=== PATIENT | female | born 1985 | race Caucasian/White ===

== ENCOUNTER 2017-02-22 12:25 | Emergency (ER) | payer OTHER ==
[~2017-02-22] VITALS: Ht 162.6 cm; Wt 90.0 kg
[2017-02-22 12:38] VITALS: Ht 162.6 cm; Wt 90.0 kg
[2017-02-22] MEDS ORDERED: KETOROLAC 60 MG INJ IM STA (13:29)
[2017-02-22] MEDS ORDERED: LIDOCAINE/MYLANTA 40 ML BTL PO ONE (13:30)
--- NOTE | 2017-02-22 13:50 | ERD ---
ER Documentation Chief Complaint Date/Time DATE: 02/22/17 TIME: 13:[address] HPI This 31-year-old female presents to the ER for sore throat that has been going on for 3 days now. Getting progressively worse. She has trouble swallowing solids. She is swallowing own secretions but feels like she does not want to because of the pain. Yesterday she felt like she had a fever but did not check the temperature. She has no ear pain. ROS All systems reviewed and are negative except as per history of present illness. Physical Exam Vitals Vital Signs Date Time Temp Pulse Resp B/P Pulse Ox O2 Delivery O2 Flow Rate FiO2 02/22/17 12:38 98.1 84 18 142/77 99 Physical Exam Const: [] Mild distress Eyes: Normal Conjunctiva, notable strabismus with BRIANDA ENT: Normal External Ears, Nose and Mouth. Oropharynx with bilateral tonsillar erythema and left tonsillar exudate, no unilateral tonsillar swelling or uvular deviation. Neck: Full range of motion..~ No meningismus. Left 2 cm anterior cervical tender lymph node. Skin: No petechiae or rashes Neur: Awake and alert and oriented 3, no focal deficit Psych: Normal Mood and Affect Results 24 hrs Current Medications Medications (Trade) Dose Ordered Sig/Lindsay Route PRN Reason Start Time Stop Time Status Last Admin Dose Admin Ketorolac Tromethamine (Toradol) 60 mg ONCE STAT IM 02/22/17 13:29 02/22/17 13:32 DC Miscellaneous Medication (Gi Cocktail (2)) 40 ml ONCE ONCE PO 02/22/17 13:30 02/22/17 13:32 DC Procedures/MDM Presumed acute streptococcal pharyngitis. Patient was given a Toradol injection as well as viscous lidocaine. This helped with her throat pain and she was able to tolerate p.o. Going to discharge her with [place], naproxen as well as amoxicillin for 10 days. I am also recommending that she gets primary care follow-up and referral for an ENT if she continues to have pain. Stable vital signs and patient is otherwise well-appearing. She is hard of seeing but independent in regard to this emergency room. I have asked the nurse to help her over to an appropriate pharmacy to fill the prescriptions on her way home. Departure Diagnosis: Primary Impression: Strep throat Condition: Stable JESUSITA JOHNSON DO Feb 22, 2017 13:50
[2017-02-22] MEDS ORDERED: AMO500 PO (14:18)
[2017-02-22] MEDS ORDERED: DEXS PO (14:18)
[2017-02-22] MEDS ORDERED: HYDR-906 PO (14:18)
[2017-02-22] MEDS ORDERED: NAPR-688 PO (14:18)
== END 2017-02-22 14:47 | disposition home or self-care (01) ==
LOC: FTE 12:25
DX: J02.9 Acute pharyngitis, unspecified (principal)
CPT/HCPCS: 96372; J1885; Z7502; Z7610

== ENCOUNTER 2018-08-04 22:09 | Emergency (ER) | END 2018-08-05 02:36 | disposition home or self-care (01) ==

== ENCOUNTER 2018-12-20 15:52 | Emergency (ER) | payer OTHER ==
[~2018-12-20] VITALS: Ht 167.6 cm; Wt 83.6 kg
[~2018-12-20 15:52] MED LIST: AMOX500C2 PO; DEXS PO; HYDR-4011 PO; IBUP800T48 PO; NAPR-688 PO
[2018-12-20 15:55] VITALS: BP 155/67; PULSE 112; RESP 20; Ht 167.6 cm; Wt 83.6 kg
[2018-12-20] MEDS ORDERED: ACETAMINOPHEN 500 MG TAB PO STA (18:40)
[2018-12-20] MEDS ORDERED: CEFTRIAXONE 1 GM INJ IM ONE (20:30)
[2018-12-20] MEDS ORDERED: LIDOCAINE 1% (MPF) 5 ML VIAL INFIL ONE (20:30)
[2018-12-20] MEDS ORDERED: IBUP-1542 PO (20:43)
[2018-12-20] MEDS ORDERED: CIPR500T4 PO (20:43)
[2018-12-20] MEDS ORDERED: ACET-141 PO (20:43)
[2018-12-20] MEDS ORDERED: TAMS-14 PO (20:45)
--- NOTE | 2018-12-20 20:59 | ERD ---
ER Documentation Chief Complaint Chief Complaint Complains of a fever since today HPI 33-year-old female no significant past medical history presents for fever x1 day. Patient states that the fever was measured at 102 home. Patient also has associated right flank pain noted to be 6 out of 10. The pain is intermittent. She was seen by her primary care physician yesterday and was told that she had a urinary tract infection and was given nitrofurantoin. She does admit to some dysuria. No other modifying factors noted, no other treatments tried home. ROS All systems reviewed and are negative except as per history of present illness. Medications Home Meds Active Scripts Tamsulosin Hcl* (Flomax*) 0.4 Mg Cap.er.24h, 0.4 MG PO DAILY for kidney stones for 14 Days, #14 CAP Prov:PEDRO LUIS CYR DO 12/20/18 Ibuprofen* (Motrin*) 600 Mg Tab, 600 MG PO Q6H PRN for PAIN AND OR ELEVATED TEMP, #30 TAB Prov:PEDRO LUIS CYR DO 12/20/18 Acetaminophen* (Acetaminophen*) 500 MG Extra Strength Tablet, 500 MG PO Q4H PRN for PAIN AND OR ELEVATED TEMP, #30 TAB Prov:PEDRO LUIS CYR DO 12/20/18 Ciprofloxacin Hcl* (Ciprofloxacin Hcl*) 500 Mg Tablet, 500 MG PO BID for pyelonephritis for 7 Days, #14 TAB Prov:PEDRO LUIS CYR DO 12/20/18 Ibuprofen* (Motrin*) 800 Mg Tab, 800 MG PO Q6, #30 TAB Prov:MAYDA TAYLOR PA-C 08/05/18 Dexamethasone* (Dexamethasone* Intensol) 1 Mg/Ml Soln, 1 MG PO ONCE, #10 ML Prov:JESUSITA JOHNSON DO 02/22/17 Naproxen* (Naproxen*) 500 Mg Tablet, 500 MG PO BID PRN for PAIN, #20 TAB Prov:JESUSITA JOHNSON DO 02/22/17 Hydrocodone/Acetaminophen ([place] 5-325 Tablet) 1 Each Tablet, 1 EACH PO Q6, #14 TAB Prov:JESUSITA JOHNSON DO 02/22/17 Amoxicillin* (Amoxicillin*) 500 Mg Cap, 500 MG PO TID for 10 Days, CAP Prov:JESUSITA JOHNSON DO 02/22/17 Allergies Allergies: Coded Allergies: No Known Allergy (Unverified , 02/22/17) PMhx/Soc History of Surgery: Yes (s cection and eye sx) Anesthesia Reaction: No Hx Neurological Disorder: No Hx Respiratory Disorders: No Hx Cardiac Disorders: No Hx Psychiatric Problems: No Hx Miscellaneous Medical Probl: No Hx Alcohol Use: No Hx Substance Use: No Hx Tobacco Use: No FmHx Family History: No coronary disease Physical Exam Vitals Vital Signs Date Temp Pulse Resp B/P (MAP) Pulse Ox O2 O2 Flow FiO2 Time Delivery Rate 12/20/18 101.5 112 20 155/67 98 15:55 (96) Physical Exam Const: No acute distress Resp: Clear to auscultation bilaterally Cardio: Regular rate and rhythm, no murmurs Abd: Soft, non distended. Normal bowel sounds, no McBurney's point tenderness, no Cabrera sign, no rebound or guarding noted Skin: No petechiae or rashes Back: Mild right flank tenderness to palpation Ext: No cyanosis, or edema Neur: Awake and alert Psych: Normal Mood and Affect Result Diagram: 12/20/188 12/20/181847 Results 24 hrs Laboratory Tests Test 12/20/18 18:47 12/20/18 18:48 Urine Test NEGATIVE White Blood Count 11.2 10^3/ul Red Blood Count 4.58 10^6/ul Hemoglobin 13.4 g/dl Hematocrit 40.1 % Mean Corpuscular Volume 87.6 fl Mean Corpuscular Hemoglobin 29.3 pg Mean Corpuscular Hemoglobin Concent 33.4 g/dl Red Cell Distribution Width 13.6 % Platelet Count 306 10^3/UL Mean Platelet Volume 10.1 fl Immature Granulocytes % 0.200 % Neutrophils % 76.6 % Lymphocytes % 14.5 % Monocytes % 8.1 % Eosinophils % 0.2 % Basophils % 0.4 % Nucleated Red Blood Cells % 0.0 /100WBC Immature Granulocytes # 0.020 10^3/ul Neutrophils # 8.6 10^3/ul Lymphocytes # 1.6 10^3/ul Monocytes # 0.9 10^3/ul Eosinophils # 0.0 10^3/ul Basophils # 0.0 10^3/ul Nucleated Red Blood Cells # 0.0 10^3/ul Urine Color YELLOW Urine Clarity CLEAR Urine pH 7.0 Urine Specific [place] 1.008 Urine Ketones NEGATIVE mg/dL Urine Nitrite NEGATIVE mg/dL Urine Bilirubin NEGATIVE mg/dL Urine Urobilinogen 1+ mg/dL Urine Leukocyte Esterase 1+ Sarah/ul Urine Microscopic RBC 6 /HPF Urine Microscopic WBC 6 /HPF Urine Hemoglobin 2+ mg/dL Urine Glucose NEGATIVE mg/dL Urine Total Protein NEGATIVE mg/dl Sodium Level 137 mmol/L Potassium Level 3.8 mmol/L Chloride Level 100 mmol/L Carbon Dioxide Level 26 mmol/L Anion Gap 11 Blood Urea Nitrogen 10 mg/dl Creatinine 0.88 mg/dl Est Glomerular Filtrat Rate mL/min > 60 mL/min Glucose Level 94 mg/dl Calcium Level 9.8 mg/dl Total Bilirubin 0.7 mg/dl Direct Bilirubin 0.00 mg/dl Indirect Bilirubin 0.7 mg/dl Aspartate Amino Transf (AST/SGOT) 16 IU/L Alanine Aminotransferase (ALT/SGPT) 15 IU/L Alkaline Phosphatase 86 IU/L Total Protein 8.5 g/dl Albumin 4.6 g/dl Globulin 3.90 g/dl Albumin/Globulin Ratio 1.17 Lipase 120 U/L Current Medications Medications Dose Sig/Lindsay Start Time Status Last (Trade) Ordered Route PRN Stop Time Admin Dose Reason Admin 1,000 mg ONCE STAT 12/20/18 DC 12/20/18 Acetaminophen PO 18:40 12/20/18 18:52 (Tylenol 18:42 Tab) Lidocaine 5 ml ONCE ONCE 12/20/18 DC 12/20/18 (Xylocaine INFIL 20:30 12/20/18 20:32 1% (Mpf)) 20:31 Ceftriaxone 1 gm ONCE ONCE 12/20/18 DC 12/20/18 Sodium IM 20:30 12/20/18 20:32 (Rocephin) 20:31 Procedures/MDM Medical Decision Making: Differential diagnosis includes but not limited to acute gastritis, acute gastroenteritis, appendicitis, cholecystitis, pancreatitis, pyelonephritis,, nephrolithiasis Patient appeared well on physical exam. Nontoxic appearing. There was some right flank tenderness to palpation ED course: Patient was given Tylenol. Symptoms improved with treatment. Labs: CBC showed no severe anemia, there is mild elevation in WBC of 11.2 CMP showed no electrolyte abnormalities, there was normal kidney and liver function Lipase was normal Urine was negative UA was positive for infection Imaging: Renal ultrasound showed bilateral nonobstructing kidney stones about 5 cm there is no evidence of hydronephrosis There is possibility patient may have right pyelonephritis Patient given IM Rocephin in the ER. Prescription(s): Patient given prescription for supportive medications including Cipro, Flomax for the renal stones. Patient advised that she may need follow-up with urology if her pain continues. Patient advised to follow up with PCP in 1-2 days. Patient advised to return to ED for new or worsening symptoms. Patient stable on discharge from the ED. Disclaimer: Inadvertent spelling and grammatical errors are likely due to EHR/dictation software use and do not reflect on the overall quality of patient care. Also, please note that the electronic time recorded on this note does not necessarily reflect the actual time of the patient encounter. Departure Diagnosis: Primary Impression: Right flank pain Condition: Fair Patient Instructions: Flank Pain, Uncertain Cause, Pyelonephritis, Female (Adult) Referrals: [facility] YOU HAVE RECEIVED A MEDICAL SCREENING EXAM AND THE RESULTS INDICATE THAT YOU DO NOT HAVE A CONDITION THAT REQUIRES URGENT TREATMENT IN THE EMERGENCY DEPARTMENT. FURTHER EVALUATION AND TREATMENT OF YOUR CONDITION CAN WAIT UNTIL YOU ARE SEEN IN YOUR DOCTORS OFFICE WITHIN THE NEXT 1-2 DAYS. IT IS YOUR RESPONSIBILITY TO MAKE AN APPOINTMENT FOR FOLOW-UP CARE. IF YOU HAVE A PRIMARY DOCTOR --you should call your primary doctor and schedule an appointment IF YOU DO NOT HAVE A PRIMARY DOCTOR YOU CAN CALL OUR PHYSICIAN REFERRAL HOTLINE AT IF YOU CAN NOT AFFORD TO SEE A PHYSICIAN YOU CAN CHOSE FROM THE FOLLOWING [facility] [address] [facility]. [facility] [address] [facility] [facility] [address] [facility] [facility] [address] [facility]. [facility] [address] [facility]. [facility]. [address] Additional Instructions: Call your primary care doctor TOMORROW for an appointment during the next 1-2 days.See the doctor sooner or return here if your condition worsens before your appointment time. PEDRO LUIS CYR DO December 20, 2018 20:59
== END 2018-12-20 20:59 | disposition home or self-care (01) ==
LOC: FTE 15:52
DX: R10.9 Unspecified abdominal pain (principal)
CPT/HCPCS: 36415; 76775; 80053; 81001; 83690; 84703; 85025; 96372; J0696; Z7502; Z7610

== ENCOUNTER 2019-02-22 16:28 | Emergency (ER) | payer OTHER ==
[~2019-02-22] VITALS: Ht 165.1 cm; Wt 83.2 kg
[~2019-02-22 16:28] MED LIST changes: +ACET-141 PO; +CIPR500T4 PO; +IBUP-1542 PO; +TAMS-14 PO
[2019-02-22 16:32] VITALS: Ht 165.1 cm; Wt 83.2 kg
[2019-02-22] MEDS ORDERED: IBUP-1542 PO (20:25)
--- NOTE | 2019-02-22 20:31 | ERD ---
ER Documentation Chief Complaint Chief Complaint rt side dental pain s/p root canal done x 2 weeks ago HPI 33-year-old female presents with difficulty opening her mouth since a root canal 2 weeks ago. She states that she is able to open her mouth approximately 1 cm and put food in. She denies fevers or significant pain except when trying to open her mouth. Pain is on the right side on the area of root canal which is on the lower molar. She denies fevers, shortness of breath, additional symptoms. ROS All systems reviewed and are negative except as per history of present illness. Medications Home Meds Active Scripts Ibuprofen* (Motrin*) 600 Mg Tab, 600 MG PO Q6, #15 TAB Prov:LEEANNA STEWART MD 02/22/19 Tamsulosin Hcl* (Flomax*) 0.4 Mg Cap.er.24h, 0.4 MG PO DAILY for kidney stones for 14 Days, #14 CAP Prov:PEDRO LUIS CYR DO 12/20/18 Ibuprofen* (Motrin*) 600 Mg Tab, 600 MG PO Q6H PRN for PAIN AND OR ELEVATED TEMP, #30 TAB Prov:PEDRO LUIS CYR DO 12/20/18 Acetaminophen* (Acetaminophen*) 500 MG Extra Strength Tablet, 500 MG PO Q4H PRN for PAIN AND OR ELEVATED TEMP, #30 TAB Prov:PEDRO LUIS CYR DO 12/20/18 Ciprofloxacin Hcl* (Ciprofloxacin Hcl*) 500 Mg Tablet, 500 MG PO BID for pyelonephritis for 7 Days, #14 TAB Prov:PEDRO LUIS CYR DO 12/20/18 Ibuprofen* (Motrin*) 800 Mg Tab, 800 MG PO Q6, #30 TAB Prov:MAYDA TAYLOR PA-C 08/05/18 Dexamethasone* (Dexamethasone* Intensol) 1 Mg/Ml Soln, 1 MG PO ONCE, #10 ML Prov:JESUSITA JOHNSON DO 02/22/17 Naproxen* (Naproxen*) 500 Mg Tablet, 500 MG PO BID PRN for PAIN, #20 TAB Prov:JESUSITA JOHNSON DO 02/22/17 Hydrocodone/Acetaminophen ([place] 5-325 Tablet) 1 Each Tablet, 1 EACH PO Q6, #14 TAB Prov:JESUSITA JOHNSON DO 02/22/17 Amoxicillin* (Amoxicillin*) 500 Mg Cap, 500 MG PO TID for 10 Days, CAP Prov:JESUSITA JOHNSON DO 02/22/17 Allergies Allergies: Coded Allergies: No Known Allergy (Unverified , 02/22/17) PMhx/Soc Medical and Surgical Hx: pt denies Medical Hx History of Surgery: Yes (s cection and eye sx) Anesthesia Reaction: No Hx Neurological Disorder: No Hx Respiratory Disorders: No Hx Cardiac Disorders: No Hx Psychiatric Problems: No Hx Miscellaneous Medical Probl: No Hx Alcohol Use: No Hx Substance Use: No Hx Tobacco Use: No FmHx Family History: No diabetes, No coronary disease, No other Physical Exam Vitals Vital Signs Date Temp Pulse Resp B/P (MAP) Pulse Ox O2 O2 Flow FiO2 Time Delivery Rate 02/22/19 98.3 76 18 147/83 99 16:32 (104) Physical Exam Const: No acute distress Head: Atraumatic Eyes: Normal Conjunctiva ENT: Normal External Ears, Nose and Mouth. No palpable tenderness except for reproducible pain when opening the mouth. No intraoral lesions, erythema, swelling. Airway patent. Neck: Full range of motion. No meningismus. Resp: Clear to auscultation bilaterally Cardio: Regular rate and rhythm, no murmurs Abd: Soft, non tender, non distended. Normal bowel sounds Skin: No petechiae or rashes Back: No midline or flank tenderness Ext: No cyanosis, or edema Neur: Awake and alert Psych: Normal Mood and Affect Procedures/MDM Patient presents with some difficulty opening the mouth after dental procedure [address] facial bones shows no dislocation, fracture, airway obstruction, signs to suggest Yusef angina, abscess, additional acute abnormalities. Patient may have a TMJ sprain. Will treat with soft diet, generous liquids, ibuprofen, recommendations for dental follow-up, return precautions. My adult the patient was stable with no new complaints during the ER course. Clinically, there is no current evidence to suggest meningitis, sepsis, acute abdomen, pneumonia, stroke, acute coronary syndrome, pulmonary embolism, aortic dissection or any other emergent condition appearing to require further evaluation or hospitalization. Patient counseled regarding my diagnostic impression and care plan. Prior to discharge all questions answered. Pt agrees with treatment plan and understands strict return precautions. Pt is instructed to follow up with primary care provider within 24-48 hours. Precautionary instructions provided including instructions to return to the ER if not improving or for any worsening or changing symptoms or concerns. Disclaimer: Inadvertent spelling and grammatical errors are likely due to EHR/dictation software use and do not reflect on the overall quality of patient care. Also, please note that the electronic time recorded on this note does not necessarily reflect the actual time of the patient encounter. Departure Diagnosis: Primary Impression: TMJ (sprain of temporomandibular joint) Encounter type: initial encounter Qualified Codes: S03.40XA - Sprain of jaw, unspecified side, initial encounter Additional Impression: Pain, dental Condition: Stable Patient Instructions: Dental Pain, Tmj Syndrome Additional Instructions: CT read as normal. Suspect sprain of TMJ joint. Recommend soft diet and see primary doctor or dentist for further evaluation. LEEANNA STEWART MD Feb 22, 2019 20:30
[2019-02-22 20:39] VITALS: BP 132/76; PULSE 74; RESP 17
== END 2019-02-22 20:39 | disposition home or self-care (01) ==
LOC: FTE 16:28
DX: S03.41XA Sprain of jaw, right side, initial encounter (principal); X58.XXXA Exposure to other specified factors, initial encounter; Y92.9 Unspecified place or not applicable
CPT/HCPCS: 70486; Z7502